=== PATIENT | female | born 1995 | race Caucasian/White ===

== ENCOUNTER 2020-04-01 13:52 | Inpatient (IN) | payer OTHER ==
[~2020-04-01] VITALS: Ht 167.6 cm; Wt 96.8 kg
[2020-04-01 14:14] VITALS: BP 134/85
[2020-04-01 14:40] LABS: BASOPHILS # (AUTO) 0.02 x10^3/uL (0-0.1); BASOPHILS % (AUTO) 0 % (0-1); EOSINOPHILS # (AUTO) 0.17 x10^3/uL (0-0.4); EOSINOPHILS % (AUTO) 2 % (1-7); LYMPHOCYTES # (AUTO) 1.98 x10^3/uL (1-3.4); LYMPHOCYTES % (AUTO) 17 % (22-44); MD NO; MEAN CORPUSCULAR HEMOGLOBIN 29.3 pg (27.0-34.8); MEAN CORPUSCULAR HGB CONC 34.1 g/dL (32.4-35.8); MEAN CORPUSCULAR VOLUME 85.9 fL (80-100); MEAN PLATELET VOLUME 8.8 fL (7.4-10.4); MONOCYTES # (AUTO) 0.62 x10^3/uL (0.2-0.8); MONOCYTES % (AUTO) 6 % (2-9); NEUTROPHILS # (AUTO) 8.62 x10^3/uL (1.8-6.8); NEUTROPHILS % (AUTO) 76 % (42-75); PLATELET COUNT 274 x10^3/uL (130-400); RED BLOOD COUNT 4.37 x10^6/uL (3.82-5.3); RED CELL DISTRIBUTION WIDTH 14.7 % (9.6-15.2)
[2020-04-01 14:53] LABS: ALANINE AMINOTRANSFERASE 16 U/L (12-78); ALBUMIN 2.5 g/dL (3.4-5.0); ANION GAP 8 mmol/L (5-15); CALCIUM 9.5 mg/dL (8.5-10.1); CHLORIDE 111 mmol/L (98-107); CREATININE 0.88 mg/dL (0.55-1.02)
[2020-04-01 14:56] LABS: ALKALINE PHOSPHATASE 115 U/L (45-117); BILIRUBIN,TOTAL 0.5 mg/dL (0.2-1.0); TOTAL PROTEIN 6.6 g/dL (6.4-8.2)
[2020-04-01 15:07] LABS: MICROSCOPIC INDICATED
[2020-04-01] MEDS ORDERED: OXYTOCIN 30U/ 0.9% NaCL 500ML 500 ML IV ONE (15:32)
[2020-04-01] MEDS ORDERED: OXYTOCIN 30U/ 0.9% NaCL 500ML 500 ML IV PRN (15:32)
[2020-04-01] MEDS ORDERED: D5%-LACTATED RINGERS 1,000 ML IV SCH (15:32)
[2020-04-01] MEDS ORDERED: OXYTOCIN 30U/ 0.9% NaCL 500ML 500 ML ONE ×2 (15:36→23:39)
[2020-04-01] MEDS ORDERED: NEWBORN KIT ONE (15:38)
[2020-04-01] MEDS ORDERED: FENTANYL PF 100 MCG/2ML IVPush PRN (16:00)
[2020-04-01] MEDS ORDERED: ONDANSETRON 2MG/ML, 2ML IVPush PRN (16:00)
[2020-04-01] MEDS ORDERED: FENTANYL PF 100 MCG/2ML IV PRN (16:00)
[2020-04-01] MEDS ORDERED: TERBUTALINE 1 MG/ML, 1ML SQ PRN (16:00)
[2020-04-01] MEDS ORDERED: TERBUTALINE 1 MG/ML, 1ML IVPush PRN (16:00)
[2020-04-01] MEDS ORDERED: FENTANYL/BUPIV./NS/PF 250 ML EPIDCONT SCH ×2 (18:27→19:09)
[2020-04-01] MEDS ORDERED: FENTANYL/BUPIV./NS/PF 250 ML EPIDCONT ONE (18:30)
[2020-04-01] MEDS: LACTATED RINGERS 1,000 ML IV SCH ×2 (18:55→21:00)
[2020-04-01] MEDS ORDERED: LACTATED RINGERS 1,000 ML IV SCH (19:09)
[2020-04-01] MEDS ORDERED: BUPIVACAINE 0.25% ONE (19:12)
[2020-04-01] MEDS ORDERED: BUPIVACAINE/PF 0.25% ONE (19:18)
[2020-04-01] MEDS ORDERED: NALOXONE 0.4 MG/ML, 1ML IVPush PRN (19:30)
[2020-04-01] MEDS ORDERED: LACTATED RINGERS 1,000 ML IVBOLUS PRN (19:30)
[2020-04-01] MEDS ORDERED: EPHEDRINE 50 MG/ML, 1ML IVPush PRN (19:30)
[2020-04-01] MEDS ORDERED: METOCLOPRAMIDE 5 MG/ML, 2ML ONE (22:15)
[2020-04-01] MEDS ORDERED: FENTANYL PF 100 MCG/2ML ONE (22:17)
[2020-04-01] MEDS ORDERED: LIDOCAINE 2%, 20ML ONE (22:29)
[2020-04-01] MEDS ORDERED: ONDANSETRON 2MG/ML, 2ML ONE ×2 (22:29)
[2020-04-01] MEDS ORDERED: SODIUM BICARBONATE 4.2%, 5ML ONE (22:29)
[2020-04-01] MEDS ORDERED: METOCLOPRAMIDE 5 MG/ML, 2ML IV ONE (22:30)
[2020-04-01] MEDS ORDERED: SODIUM CITRATE/CITRIC ACID 30 ML UDC PO ONE (22:30)
[2020-04-02] MEDS: OXYTOCIN 30U/ 0.9% NaCL 500ML 500 ML IV SCH ×10 (00:53→20:53)
[2020-04-02 01:00] VITALS: BP 111/74
[2020-04-02] MEDS ORDERED: MISOPROSTOL 200 MCG TABLET PR PRN (01:00)
[2020-04-02] MEDS: ACETAMINOPHEN 325 MG TABLET PO SCH ×4 (01:00→19:10)
[2020-04-02] MEDS ORDERED: SIMETHICONE 80 MG CHEW TAB PO PRN (01:00)
[2020-04-02] MEDS ORDERED: CALCIUM CARBONATE 500 MG TAB.CHEW PO PRN (01:00)
[2020-04-02] MEDS ORDERED: BISACODYL 10 MG SUPP PR PRN (01:00)
[2020-04-02] MEDS ORDERED: ACETAMINOPHEN 325 MG TABLET PO PRN (01:00)
[2020-04-02] MEDS ORDERED: OXYcodone/APAP 5/325MG TABLET PO PRN ×2 (01:00)
[2020-04-02] MEDS ORDERED: ONDANSETRON 2MG/ML, 2ML IV PRN (01:00)
[2020-04-02] MEDS: IBUPROFEN 600 MG TABLET PO SCH ×4 (03:02→21:02)
[2020-04-02 05:10] VITALS: BP 108/72
[2020-04-02 06:10] LABS: BASOPHILS # (AUTO) 0.05 x10^3/uL (0-0.1); BASOPHILS % (AUTO) 0 % (0-1); EOSINOPHILS # (AUTO) 0.04 x10^3/uL (0-0.4); EOSINOPHILS % (AUTO) 0 % (1-7); LYMPHOCYTES # (AUTO) 2.48 x10^3/uL (1-3.4); LYMPHOCYTES % (AUTO) 16 % (22-44); MD NO; MEAN CORPUSCULAR HEMOGLOBIN 28.9 pg (27.0-34.8); MEAN CORPUSCULAR VOLUME 87.7 fL (80-100); MEAN PLATELET VOLUME 9.1 fL (7.4-10.4); MONOCYTES % (AUTO) 6 % (2-9); NEUTROPHILS # (AUTO) 12.14 x10^3/uL (1.8-6.8); NEUTROPHILS % (AUTO) 78 % (42-75); PLATELET COUNT 226 x10^3/uL (130-400); RED BLOOD COUNT 3.95 x10^6/uL (3.82-5.3); RED CELL DISTRIBUTION WIDTH 14.9 % (9.6-15.2)
[2020-04-02 08:07] VITALS: BP 113/76
[2020-04-02] MEDS: PRENATAL VIT/IRON/FA 1 EACH TABLET PO SCH (08:07)
[2020-04-02] MEDS: DOCUSATE 100 MG CAPSULE PO PRN ×2 (08:07→19:10)
[2020-04-02] MEDS: HYDROcodone/APAP 5/325 TABLET PO PRN ×4 (09:27→23:25)
[2020-04-02 12:17] VITALS: BP 113/75
[2020-04-02 15:39] VITALS: BP 111/72
[2020-04-02 20:00] VITALS: BP 112/74
[2020-04-03] MEDS: ACETAMINOPHEN 325 MG TABLET PO SCH ×3 (01:05→13:36)
[2020-04-03] MEDS: IBUPROFEN 600 MG TABLET PO SCH ×3 (02:52→15:22)
[2020-04-03] MEDS: HYDROcodone/APAP 5/325 TABLET PO PRN ×2 (04:05→13:38)
[2020-04-03] MEDS: OXYTOCIN 30U/ 0.9% NaCL 500ML 500 ML IV SCH (06:53)
[2020-04-03] MEDS: DOCUSATE 100 MG CAPSULE PO PRN (07:34)
[2020-04-03 08:00] VITALS: BP 116/77
[2020-04-03] MEDS: PRENATAL VIT/IRON/FA 1 EACH TABLET PO SCH (09:02)
[2020-04-03] MEDS ORDERED: DOCU-131 PO (14:32)
[2020-04-03] MEDS ORDERED: IBUP-1222 PO (14:33)
[2020-04-03] MEDS ORDERED: HYDR-3240 PO (14:34)
== END 2020-04-03 17:00 | disposition home or self-care (01) | DRG 807 ==
LOC: LDOP 13:52 → LDIP 15:39 → 2NW 04-02 00:34
PROVIDERS: ADMIT Obstetrics & Gynecology; ATTEND Obstetrics & Gynecology
PROC: 10E0XZZ Delivery of Products of Conception, External Approach (ICD-10-PCS; principal; 2020-04-01)
PROC: 3E033VJ Introduction of Other Hormone into Peripheral Vein, Percutaneous Approach (ICD-10-PCS; 2020-04-01)
PROC: 10907ZC Drainage of Amniotic Fluid, Therapeutic from Products of Conception, Via Natural or Artificial Opening (ICD-10-PCS; 2020-04-01)
PROC: 3E0R3BZ Introduction of Anesthetic Agent into Spinal Canal, Percutaneous Approach (ICD-10-PCS; 2020-04-01)
PROC: 00HU33Z Insertion of Infusion Device into Spinal Canal, Percutaneous Approach (ICD-10-PCS; 2020-04-01)
DX: O14.94 Unspecified pre-eclampsia, complicating childbirth (principal); Z37.0 Single live birth; O99.214 Obesity complicating childbirth; E66.9 Obesity, unspecified; O69.81X0 Labor and delivery complicated by cord around neck, without compression, not applicable or unspecified; O35.8XX0 Maternal care for other (suspected) fetal abnormality and damage, not applicable or unspecified; Z82.49 Family history of ischemic heart disease and other diseases of the circulatory system; Z3A.37 37 weeks gestation of pregnancy; Z83.3 Family history of diabetes mellitus
CPT/HCPCS: 36415; J3490; J7121; 80053; 81001; 82570; 83615; 84156; 84550; 85025; 86592; 86850; 86900; 87635; 88302; G0378; J2405; J3010; J2590; J2765; J7120